=== PATIENT | female | born 1980 | race Caucasian/White ===

== ENCOUNTER 2021-07-09 13:37 | Emergency (ER) | payer MEDICAID, SELFPAY ==
[2021-07-09 14:07] VITALS: BP 138/82; PULSE 98
--- NOTE | 2021-07-09 14:09 | PC.NURSE ---
client brought to pod by [facility]. allegedly discharged from [facility] today, went home to [address], apparently missed methadone dose and boyfriend manages medications, from ems report methadone, vyvanse and ativan patient arrived with pill bottles in [place], one bottle unlabeled orange round tablets (about 40-50 in number). patient appeared unsteady, glazed eyes unfocused slurring speech, patient appeared under the influence of drugs and or etoh although no odor emanating from patient notfied charge and provider to come assess patient.
[2021-07-09 14:16] VITALS: BP 99/60; PULSE 91; RESP 16; TEMP 36.6; O2SAT 96
[2021-07-09 14:19] VITALS: BP 95/50; PULSE 96; RESP 16; TEMP 36.8; O2SAT 95
[2021-07-09 14:20] VITALS: BP 99/60; PULSE 93; RESP 17; TEMP 36.4; O2SAT 97; BMI 38.2
--- NOTE | 2021-07-09 14:24 | ED_ITS ---
HPI - Psych General Chief Complaint: Altered Mental Status <ARTURO Brock Last Filed: 07/09/21 17:51> Stated Complaint: Crisis <ARTURO Brock Last Filed: 07/09/21 17:51> Time Seen by Provider: 07/09/21 14:24 <ARTURO Brock Last Filed: 07/09/21 17:51> Source: old records reviewed <ARTURO Brock Last Filed: 07/09/21 17:51> Mode of arrival: EMS <ARTURO Brock Last Filed: 07/09/21 17:51> Limitations: altered mental status <ARTURO Brock Last Filed: 07/09/21 17:51> History of Present Illness HPI Narrative: 40-year-old female with a past medical history of alcohol abuse, polysubstance abuse, on methadone, Ativan, prozac, and benadryl, and possibly Suboxone and Vyvanse presents altered from her [facility]. Patient cannot tell us why she is here. She is able to follow commands but she becomes lethargic. She is protecting her airway. She cannot provide a review of systems. patient does state that she took 4 of her Ativan and her Prozac today. From [facility] records, pt's home meds include 40 mg fluoxetine, 300 mg gabapentin t.i.d., 1 mg lorazepam 2 times a day p.r.n., 55 mg methadone daily, 25 mg Benadryl q.6 hours PRN. Patient has Suboxone, and Vyvanse, and promethazine listed in her med list, but note from June 12, 2021 from Andre Theodore states patient is not taking these medications <ARTURO Brock - Last Filed: 07/09/21 17:51> MD complaint: altered mental status <ARTURO Brock Last Filed: 07/09/21 17:51> Onset (ago): unknown <ARTURO Brock Last Filed: 07/09/21 17:51> Related Data Allergies/Adverse Reactions: Allergies Allergy/AdvReac Type Severity Reaction Status Date / Time bee pollen [BEE Allergy Severe ANAPHYLAXIS Unverified 02/26/20 18:06 STINGS] phenobarbital Allergy Severe Anaphylaxis Verified 07/09/21 14:39 SEAFOOD Allergy Severe ANAPHYLAXIS Uncoded 02/26/20 18:06 <ARTURO Brock - Last Filed: 07/09/21 17:51> Review of Systems Verdana 4l Review of Systems: Yes Unobtainable due to mental status Verdana 4d Verdana 4Il <ARTURO Brock - Last Filed: 07/09/21 17:51> Verdana 4d Verdana 4l Neurologic: Verdana 4d Reports Abnormal speech present and Reports confusion Verdana 4Il <ARTURO Brock - Last Filed: 07/09/21 17:51> Verdana 4d Verdana 4l Psychiatric: Verdana 4d Verdana 4d Psychiatric: Verdana 4d Reports confusion, Denies homicidal ideation and Denies suicidal ideation Verdana 4Il <ARTURO Brock - Last Filed: 07/09/21 17:51> Verdana 4d [facility] Past Medical History [facility] Narrative: Alcohol abuse, depression, seizure disorder, polysubstance abuse <ARTURO Brock - Last Filed: 07/09/21 17:51> Medical History: Medical History ADHD <ARTURO Brock - Last Filed: 07/09/21 17:51> Social History Social History: Social History Alcohol intake: current Patient Tobacco Use Status: Current everyday Tobacco user Smoked in Last 30 Days: Yes Use of substances other than those prescribed or required for medical reasons: Yes Advance Directives: No Advance Directives Information Provided: Yes Patient : No <ARTURO Brock - Last Filed: 07/09/21 17:51> Physical Exam Verdana 4l Vital Signs: Verdana 4d Verdana 4d Vital Signs: Verdana 4d Verdana 4Bd Last Vital Signs Verdana 4d News Library Director New 4d News Library Director New 4d Temp 97.9 F 07/09/21 20:00 News Library Director New 4d Pulse 74 07/09/21 20:00 News Library Director New 4d Resp 14 07/09/21 20:00 BP 101/51 L 07/09/21 20:00 Pulse Ox 98 07/09/21 20:00 BMI result Body Mass Index 38.2 <ARTURO Brock - Last Filed: 07/09/21 17:51> Vital Signs: Last Vital Signs Temp 97.9 F 07/09/21 20:00 Pulse 74 07/09/21 20:00 Resp 14 07/09/21 20:00 BP 101/51 L 07/09/21 20:00 Pulse Ox 98 07/09/21 20:00 BMI result Body Mass Index 38.2 <Maxx Reaves MD - Last Filed: 07/10/21 00:30> Const: General: alert, awake, combative, confusion, intoxicated appearing and lethargic; No diaphoretic <ARTURO Brock - Last Filed: 07/09/21 17:51> Nutritional Appearance: obese centrally obese <ARTURO Brock - Last Filed: 07/09/21 17:51> Orientation/consciousness: oriented to person, confusion and lethargic <ARTURO Brock - Last Filed: 07/09/21 17:51> Limitations: altered mental status <ARTURO Brock - Last Filed: 07/09/21 17:51> HENMT: Head: Yes normal to inspection, Yes normocephalic and Yes atraumatic <ARTURO Brock - Last Filed: 07/09/21 17:51> Ears: hearing grossly normal bilaterally and external ears normal <ARTURO Brock - Last Filed: 07/09/21 17:51> General nose exam: Normal external nose present <ARTURO Brock - Last Filed: 07/09/21 17:51> Face and sinus: Yes normal facial exam <ARTURO Brock - Last Filed: 07/09/21 17:51> Mouth: Normal oral and palatal mucosa present <ARTURO Brock - Last Filed: 07/09/21 17:51> Eyes: Conjunctivae: conjunctivae normal <ARTURO Brock - Last Filed: 07/09/21 17:51> Pupils: Pinpoint pupils (reactive) bilaterally <ARTURO Brock - Last Filed: 07/09/21 17:51> EOM: Nystagmus present <ARTURO Brock - Last Filed: 07/09/21 17:51> Neck: Neck: Yes full ROM, Yes no lymphadenopathy and Yes supple <Pamela Gonzales [facility] Last Filed: 07/09/21 17:51> Resp: Effort & Inspection: normal respiratory effort and able to speak in complete sentences <Pamela Gonzales [facility] Last Filed: 07/09/21 17:51> Auscultation: clear to auscultation bilaterally, no crackles, no rales, no rhonchi and no wheezes <Pamela Gonzales [facility] Last Filed: 07/09/21 17:51> Cardio: Rate: regular rate <Pamela Gonzales [facility] Last Filed: 07/09/21 17:51> Rhythm: regular rhythm <Pamela Gonzales [facility] Last Filed: 07/09/21 17:51> Heart sounds: S1 normal heart sound present and S2 normal heart sound present <Pamela Gonzales [facility] Last Filed: 07/09/21 17:51> GI: Inspection: Yes normal to inspection <Pamela Gonzales [facility] Last Filed: 07/09/21 17:51> Palpation (GI): Soft to palpation, nontender, no guarding and not rigid <Pamela Gonzales [facility] Last Filed: 07/09/21 17:51> Percussion: Yes normal to percussion <Pamela Gonzales [facility] Last Filed: 07/09/21 17:51> Auscultation: normal bowel sounds <Pamela Gonzales [facility] Last Filed: 07/09/21 17:51> Skin: General skin exam: no rashes or lesions noted <Pamela Gonzales [facility] Last Filed: 07/09/21 17:51> Neuro: Other: Moving all extremities, is able to get out of bed and stand on her own, patient has nystagmus is slurred speech, is unable to perform cerebellar [id number] <Pamela Gonzales [facility] Last Filed: 07/09/21 17:51> General: oriented to person, tone normal, moves all extremities, deep tendon reflexes 2+ bilaterally, confusion and Unable to assess gait <Pamela Gonzales [facility] Last Filed: 07/09/21 17:51> Cranial nerves: Yes Normal facial strength present, Yes Midline tongue present and Yes Nystagmus present <Pamela Gonzales [facility] - Last Filed: 07/09/21 17:51> Cognition (Neuro): abnormal cognition <ARTURO Brock - Last Filed: 07/09/21 17:51> Speech: Abnormal speech present slurred <ARTURO Brock - Last Filed: 07/09/21 17:51> Gait exam (Neuro): Unable to assess gait <ARTURO Brock - Last Filed: 07/09/21 17:51> Pupils: Normal pupillary reactivity/response: bilateral <ARTURO Brock - Last Filed: 07/09/21 17:51> Extrem: General: Yes normal to inspection and Yes full ROM <Pamela Gonzales [facility] - Last Filed: 07/09/21 17:51> Psych: Appearance: disheveled <ARTURO Brock - Last Filed: 07/09/21 17:51> Mental Status: other <ARTURO Brock Last Filed: 07/09/21 17:51> Speech and movement: Slurred speech present <ARTURO Brock - Last Filed: 07/09/21 17:51> Affect: Anxious affect present and Hostile affect present <Pamela Gonzales [facility] Last Filed: 07/09/21 17:51> Attitude: Belligerent attititude/behavior present <ARTURO Brock - Last Filed: 07/09/21 17:51> Thought content: suicidality and no homicidality <ARTURO Brock Last Filed: 07/09/21 17:51> Judgement: Poor judgement present (Psych) <ARTURO Brock Last Filed: 07/09/21 17:51> Course Course Course Narrative: 60-year-old altered female with an unclear story of why she is here. Patient says she was at [facility] ER today, says she [facility] back to her [facility], and they sent her here for medical clearance Says she took 4 Ativan and her daily Prozac. Unclear why she took an increased dose of Ativan, denies SI I tried to call patient's listed phone number [facility]. I called [facility] emergency room they gave me an address and phone number in [place]. Called that phone number, went to [employer]. However after Googling the address patient apparently lives at [facility] in [place]. Per the website, this home supports homeless women. Got note from Andre Theodore from earlier today. At 1:00 a.m. this morning, patient arrived via EMS for a crisis evaluation. Patient was stating she had had a rough day. Staff at her [facility] was concerned patient may have taken too much of her medication. Patient was lethargic but woke to tactile stimuli. Patient denied knowing the circumstances that brought her in and denied drug or alcohol use. She denied SI and HI there. After 6 hours, patient woke up. She did not want to talk to crisis. Note from [facility] states this was a possible intentional drug overdose. Patient was discharged. On exam, pt is able to awake and answer questions and follow commands, but she has slurred speech, nystagmus, and pinpoint pupils that are reactive to light. Pt is able to walk, and gets off the stretcher, demanding food, and saying she wants to leave AMA. Dr Hendricks spoke to patient, told her she is not safe to go home, and must stay, pt complied. She denies self harm, SI or HI. In a moment of lucidity states that methadone is held in a lock box, but is unclear who holds the meds at the [facility]. Will get all the psych labs, EKG, blood glucose, COVID test, drug screen, ethanol, salicylate, Tylenol, magnesium, phosphorus. Will call poison Control, placed pt on capnography <ARTURO Brock - Last Filed: 07/09/21 17:51> Reevaluation(s) Reevaluation #1: Spoke to poison Control, counseled that methadone can prolong the QTC, and QTC from EKG done at 3:00 p.m. shows QTC of 499 which is prolonged, with pinpoint pupils and a soft blood pressure, this could indicate methadone overdose. Poison Control counseled to keep potassium greater than 4 magnesium greater than 2, keep on cardiac care nurse, do serial EKGs every 2-4 hours. Patient is belligerent when she is more lucid and alert. Patient is able to follow commands, and on my re-evaluation pupils are now normal size, and PERRLA. Discussed with Dr. Hendricks, who counseled not using Narcan, as that could precipitate withdrawal <ARTURO Brock - Last Filed: 07/09/21 17:51> Reevaluation #2: Initial EKG at 3:00 p.m. shows QRS at 90, QTC 499. Repeat EKG 2 hours later at 5:00 p.m. shows QRS at 94 and QTC at 490. The QRS is not widening and the QTC is not increasing CBC remarkable for mild anemia, chemistry shows normal magnesium at 2.3 and normal potassium 4.1. Patient has mildly elevated liver function tests, AST 59, ALT 34. Negative for alcohol, salicylates, Tylenol, and COVID. Awaiting urine On re-exam, patient's vitals are more stable, blood pressure 107/71, satting 99% on room air with no oxygen, capnography is 38. PERRLA, patent airway Patient was arousable and requested to be able to continue to sleep. Ssgned pt out to Dr Reaves, awaiting crisis eval once patient is less somulent <ARTURO Brock Last Filed: 07/09/21 17:51> Reevaluation #3: 0023: Physician observation started at 0023. I assumed care of this patient from my colleague, Jolene Gonzales. The patient was sent here from her [facility] for psychiatric evaluation for possible placement in a respite type setting. There was a concerned that the patient was taking more medications than prescribed. Initially the patient was very lethargic and there was a concern that she may have taken extra Ativan or extra methadone. The plan was to observe her in the emergency department until she was awake enough to give us a better history. The patient was able to talk to me. She told me that she has a history of alcohol and heroin abuse. She states that she has been sober since January 09, 2021. She states she is currently taking methadone daily but has not received her methadone in 2 days. She states that she is living in a sober house and she has been very emotional. She states that her aunt is sick and she feels overwhelmed. She states that 1 of the other women at the [facility] was bullied and the patient spent all night talking to this woman and did not get any sleep. She states that she took her usual medications today and did not taking extra Ativan and she did not take any extra methadone. She states that she was like to talk to our [facility] counselors to see if she can get in to a respite type program. At this time, I believe that the patient is medically cleared for evaluation. We will obtain a urine for drug screen. patient is awake, she is able answer questions, lung exam was clear, heart regular rate rhythm, neurologic exam is nonfocal. <Maxx Reaves MD - Last Filed: 07/10/21 00:30> Time: 00:22 <Maxx Reaves MD - Last Filed: 07/10/21 00:30> MDM - Psych Medical Records Attestation: I reviewed the patient's medical records. <ARTURO Brock - Last Filed: 07/09/21 17:51> Lab Data Attestation: I reviewed the patient's lab results. <ARTURO Brock - Last Filed: 07/09/21 17:51> Result diagrams: : 07/09/21 15:51 07/09/21 15:51 <ARTURO Brock - Last Filed: 07/09/21 17:51> Labs: Lab Results 07/09/21 07/09/21 07/09/21 Range/Units 15:51 15:51 15:51 WBC 5.1 (4.8-10.8) X10*3/uL RBC 3.91 L (4.20-5.50) X10*6/uL Hgb 11.9 L (12.0-16.0) g/dl Hct 34.9 L (37.0-47.0) % MCV 89.3 (80.0-98.0) fL MCH 30.4 (27.0-33.0) pg MCHC 34.1 (31.0-35.0) g/dl RDW 12.7 (11.0-16.0) % Plt Count 134 L (160-400) X10*3/uL MPV 10.7 (9.4-12.3) fL Immature Gran % (Auto) 0.2 (0.0-0.4) % Neut % (Auto) 49.7 (45-73) % Lymph % (Auto) 37.2 (20-40) % Fajardo % (Auto) 8.6 (2-11) % Eos % (Auto) 4.1 H (0-4) % Baso % (Auto) 0.2 (0-2) % Lymph # (Auto) 1.9 (1.2-4.9) X10*3/uL Fajardo # (Auto) 0.4 (0.1-1.2) X10*3/uL Eos # (Auto) 0.2 (0.0-0.4) X10*3/uL Baso # (Auto) 0.0 (0.0-0.2) X10*3/uL Abs Immat Gran (auto) 0.01 (0.00-0.03) X10*3/uL Absolute Neuts (auto) 2.6 (2.0-8.3) x10*3/uL Absolute Nucleated RBC 0.000 (0.0-0.012) X10*3/uL Nucleated RBC % (auto) 0.0 (0.0-0.2) /100WBC Sodium 139 (135-145) mmol/L Potassium 4.1 (3.3-5.1) mmol/L Chloride 108 (96-108) mmol/L Carbon Dioxide 23 (22-29) mmol/L Anion Gap 12 (12-20) BUN 13 (9-16) mg/dL Creatinine 0.75 (0.5-1.4) mg/dL Estim Creat Clear Calc 142.2 Estimated GFR > 60 Random Glucose 100 (60-115) mg/dL Calcium 8.9 (8.4-10.2) mg/dL Phosphorus 3.8 (2.7-4.5) mg/dL Magnesium 2.3 (1.6-2.6) mg/dL Total Bilirubin 0.3 (0.0-1.0) mg/dL AST 59 H (5-31) U/L ALT 34 H (0-31) U/L Alkaline Phosphatase 69 (39-117) U/L Total Protein 6.9 (6.5-8.0) g/dL Albumin 3.7 (3.5-5.0) g/dL Salicylates < 5.0 L (15-30) mg/dL Acetaminophen < 1 (<30) mcg/mL Ethyl Alcohol < 10 mg/dL COVID-19 (JORGE LUIS) (Negative) COVID-19 Clin Com 07/09/21 Range/Units 15:54 WBC (4.8-10.8) X10*3/uL RBC (4.20-5.50) X10*6/uL Hgb (12.0-16.0) g/dl Hct (37.0-47.0) % MCV (80.0-98.0) fL MCH (27.0-33.0) pg MCHC (31.0-35.0) g/dl RDW (11.0-16.0) % Plt Count (160-400) X10*3/uL MPV (9.4-12.3) fL Immature Gran % (Auto) (0.0-0.4) % Neut % (Auto) (45-73) % Lymph % (Auto) (20-40) % Fajardo % (Auto) (2-11) % Eos % (Auto) (0-4) % Baso % (Auto) (0-2) % Lymph # (Auto) (1.2-4.9) X10*3/uL Fajardo # (Auto) (0.1-1.2) X10*3/uL Eos # (Auto) (0.0-0.4) X10*3/uL Baso # (Auto) (0.0-0.2) X10*3/uL Abs Immat Gran (auto) (0.00-0.03) X10*3/uL Absolute Neuts (auto) (2.0-8.3) x10*3/uL Absolute Nucleated RBC (0.0-0.012) X10*3/uL Nucleated RBC % (auto) (0.0-0.2) /100WBC Sodium (135-145) mmol/L Potassium (3.3-5.1) mmol/L Chloride (96-108) mmol/L Carbon Dioxide (22-29) mmol/L Anion Gap (12-20) BUN (9-16) mg/dL Creatinine (0.5-1.4) mg/dL Estim Creat Clear Calc Estimated GFR Random Glucose (60-115) mg/dL Calcium (8.4-10.2) mg/dL Phosphorus (2.7-4.5) mg/dL Magnesium (1.6-2.6) mg/dL Total Bilirubin (0.0-1.0) mg/dL AST (5-31) U/L ALT (0-31) U/L Alkaline Phosphatase (39-117) U/L Total Protein (6.5-8.0) g/dL Albumin (3.5-5.0) g/dL Salicylates (15-30) mg/dL Acetaminophen (<30) mcg/mL Ethyl Alcohol mg/dL COVID-19 ([facility]) Negative (Negative) COVID-19 Clin Com See Note <ARTURO Brock - Last Filed: 07/09/21 17:51> Lab Results 07/09/21 07/09/21 07/09/21 Range/Units 15:51 15:51 15:51 WBC 5.1 (4.8-10.8) X10*3/uL RBC 3.91 L (4.20-5.50) X10*6/uL Hgb 11.9 L (12.0-16.0) g/dl Hct 34.9 L (37.0-47.0) % MCV 89.3 (80.0-98.0) fL MCH 30.4 (27.0-33.0) pg MCHC 34.1 (31.0-35.0) g/dl RDW 12.7 (11.0-16.0) % Plt Count 134 L (160-400) X10*3/uL MPV 10.7 (9.4-12.3) fL Immature Gran % (Auto) 0.2 (0.0-0.4) % Neut % (Auto) 49.7 (45-73) % Lymph % (Auto) 37.2 (20-40) % Fajardo % (Auto) 8.6 (2-11) % Eos % (Auto) 4.1 H (0-4) % Baso % (Auto) 0.2 (0-2) % Lymph # (Auto) 1.9 (1.2-4.9) X10*3/uL Fajardo # (Auto) 0.4 (0.1-1.2) X10*3/uL Eos # (Auto) 0.2 (0.0-0.4) X10*3/uL Baso # (Auto) 0.0 (0.0-0.2) X10*3/uL Abs Immat Gran (auto) 0.01 (0.00-0.03) X10*3/uL Absolute Neuts (auto) 2.6 (2.0-8.3) x10*3/uL Absolute Nucleated RBC 0.000 (0.0-0.012) X10*3/uL Nucleated RBC % (auto) 0.0 (0.0-0.2) /100WBC Sodium 139 (135-145) mmol/L Potassium 4.1 (3.3-5.1) mmol/L Chloride 108 (96-108) mmol/L Carbon Dioxide 23 (22-29) mmol/L Anion Gap 12 (12-20) BUN 13 (9-16) mg/dL Creatinine 0.75 (0.5-1.4) mg/dL Estim Creat Clear Calc 142.2 Estimated GFR > 60 Random Glucose 100 (60-115) mg/dL Calcium 8.9 (8.4-10.2) mg/dL Phosphorus 3.8 (2.7-4.5) mg/dL Magnesium 2.3 (1.6-2.6) mg/dL Total Bilirubin 0.3 (0.0-1.0) mg/dL AST 59 H (5-31) U/L ALT 34 H (0-31) U/L Alkaline Phosphatase 69 (39-117) U/L Total Protein 6.9 (6.5-8.0) g/dL Albumin 3.7 (3.5-5.0) g/dL Salicylates < 5.0 L (15-30) mg/dL Acetaminophen < 1 (<30) mcg/mL Ethyl Alcohol < 10 mg/dL COVID-19 ([facility]) (Negative) COVID-19 Clin Com 07/09/21 Range/Units 15:54 WBC (4.8-10.8) X10*3/uL RBC (4.20-5.50) X10*6/uL Hgb (12.0-16.0) g/dl Hct (37.0-47.0) % MCV (80.0-98.0) fL MCH (27.0-33.0) pg MCHC (31.0-35.0) g/dl RDW (11.0-16.0) % Plt Count (160-400) X10*3/uL MPV (9.4-12.3) fL Immature Gran % (Auto) (0.0-0.4) % Neut % (Auto) (45-73) % Lymph % (Auto) (20-40) % Fajardo % (Auto) (2-11) % Eos % (Auto) (0-4) % Baso % (Auto) (0-2) % Lymph # (Auto) (1.2-4.9) X10*3/uL Fajardo # (Auto) (0.1-1.2) X10*3/uL Eos # (Auto) (0.0-0.4) X10*3/uL Baso # (Auto) (0.0-0.2) X10*3/uL Abs Immat Gran (auto) (0.00-0.03) X10*3/uL Absolute Neuts (auto) (2.0-8.3) x10*3/uL Absolute Nucleated RBC (0.0-0.012) X10*3/uL Nucleated RBC % (auto) (0.0-0.2) /100WBC Sodium (135-145) mmol/L Potassium (3.3-5.1) mmol/L Chloride (96-108) mmol/L Carbon Dioxide (22-29) mmol/L Anion Gap (12-20) BUN (9-16) mg/dL Creatinine (0.5-1.4) mg/dL Estim Creat Clear Calc Estimated GFR Random Glucose (60-115) mg/dL Calcium (8.4-10.2) mg/dL Phosphorus (2.7-4.5) mg/dL Magnesium (1.6-2.6) mg/dL Total Bilirubin (0.0-1.0) mg/dL AST (5-31) U/L ALT (0-31) U/L Alkaline Phosphatase (39-117) U/L Total Protein (6.5-8.0) g/dL Albumin (3.5-5.0) g/dL Salicylates (15-30) mg/dL Acetaminophen (<30) mcg/mL Ethyl Alcohol mg/dL COVID-19 ([facility]) Negative (Negative) COVID-19 Clin Com See Note <Maxx Reaves MD - Last Filed: 07/10/21 00:30> ECG Data Interpretation: EKG #1, 3:06 pm: normal sinus with a rate of 76, OR interval 200, QRS 98, prolonged QTC at 499, normal axis, no ST depressions or elevations EKG #2: 5:06 PM: sinus rhythm with possible first-degree AV block with rate of 70, OR 210, QRS 94, QTC 490, no ST elevations or depressions <ARTURO Brock - Last Filed: 07/09/21 17:51> Discharge Plan Discharge Clinical Impression: Altered mental status <ARTURO Brock - Last Filed: 07/09/21 17:51> Patient Disposition: Still a Patient <ARTURO Brock - Last Filed: 07/09/21 17:51>
--- NOTE | 2021-07-09 14:44 | ECG_ITS ---
Test Reason : AMS Blood Pressure : / mmHG Vent. Rate : 076 BPM Atrial Rate : 076 BPM P-R Int : 200 ms QRS Dur : 098 ms QT Int : 444 ms P-R-T Axes : 024 102 022 degrees QTc Int : 499 ms Normal sinus rhythm Rightward axis Low voltage QRS Prolonged QT Abnormal ECG When compared with ECG of 12-MAR-2013 17:48, Vent. rate has decreased BY 51 BPM Questionable change in QRS axis Minimal criteria for Anterior infarct are no longer Present Referred By: Pamela Gonzales Electronically Signed By:YASMEEN MARTINEZ MD
--- NOTE | 2021-07-09 14:55 | PC.NURSE ---
pt alert to self and place, very drowsy and struggling to stay awake while talking. pt reports taking ativan and prosac at home, didn't take methadone this morning. pt was possibly seen at [facility] today. pt confirms not an SI attempt, wanted to calm down . agreeable to plan at this time.
[2021-07-09 15:55] VITALS: BP 107/45; PULSE 72; RESP 16; O2SAT 97
[2021-07-09] MEDS: 0.9 % Sodium Chloride 1,000 ML 999 ML IV (15:55)
[2021-07-09 15:57] LABS: MANUAL DIFF FLAG NO
--- NOTE | 2021-07-09 15:57 | PC.NURSE ---
Jolene MORRIS spoke to posion control. IV established, fluids started and labs obtained. Pt observer with pt at this tie.
[2021-07-09 15:58] LABS: Basophils Percent Auto 0.2 % (0-2); Eosinophils Absolute Auto 0.2 X10*3/uL (0.0-0.4); Eosinophils Percent Auto 4.1 % (0-4); Hematocrit 34.9 % (37.0-47.0); Hemoglobin 11.9 g/dl (12.0-16.0); Imm Gran Abs Auto 0.01 X10*3/uL (0.00-0.03); Imm Gran Pct Auto 0.2 % (0.0-0.4); Lymphocytes Absolute Auto 1.9 X10*3/uL (1.2-4.9); Lymphocytes Percent Auto 37.2 % (20-40); Mean Corpuscular HGB Conc 34.1 g/dl (31.0-35.0); Mean Corpuscular Hemoglobin 30.4 pg (27.0-33.0); Mean Corpuscular Volume 89.3 fL (80.0-98.0); Mean Platelet Volume 10.7 fL (9.4-12.3); Monocytes Absolute Auto 0.4 X10*3/uL (0.1-1.2); Monocytes Percent Auto 8.6 % (2-11); Neutrophils Absolute Auto 2.6 x10*3/uL (2.0-8.3); Neutrophils Percent Auto 49.7 % (45-73); Platelet Count 134 X10*3/uL (160-400); Red Blood Count 3.91 X10*6/uL (4.20-5.50); Red Cell Distribution Width 12.7 % (11.0-16.0); White Blood Count 5.1 X10*3/uL (4.8-10.8)
[2021-07-09 16:07] LABS: Ethanol < 10 mg/dL
[2021-07-09 16:16] LABS: Alanine Aminotransferase 34 U/L (0-31); Albumin Level 3.7 g/dL (3.5-5.0); Alkaline Phosphatase 69 U/L (39-117); Anion Gap 12 (12-20); Aspartate Amino Transferase 59 U/L (5-31); Bilirubin Total 0.3 mg/dL (0.0-1.0); Blood Urea Nitrogen 13 mg/dL (9-16); Calcium 8.9 mg/dL (8.4-10.2); Carbon Dioxide 23 mmol/L (22-29); Chloride 108 mmol/L (96-108); Creatinine Clr Calc Pharmacy 142.2; Estimated Glomerular Filt Rate > 60; Glucose Random 100 mg/dL (60-115); Magnesium 2.3 mg/dL (1.6-2.6); Phosphorus 3.8 mg/dL (2.7-4.5); Potassium 4.1 mmol/L (3.3-5.1); Salicylate < 5.0 mg/dL (15-30); Sodium 139 mmol/L (135-145); Total Protein 6.9 g/dL (6.5-8.0)
[2021-07-09 16:18] LABS: COVID-19 Test Negative (Negative); IDNOW Serial# 9DD0AD1C
[2021-07-09 16:29] LABS: Acetaminophen LAB < 1 mcg/mL (<30)
--- NOTE | 2021-07-09 16:59 | ECG_ITS ---
Test Reason : REPEAT Blood Pressure : / mmHG Vent. Rate : 070 BPM Atrial Rate : 070 BPM P-R Int : 210 ms QRS Dur : 094 ms QT Int : 454 ms P-R-T Axes : 033 100 049 degrees QTc Int : 490 ms Sinus rhythm with 1st degree A-V block Rightward axis Prolonged QT Abnormal ECG When compared with ECG of 09-JUL-2021 15:06, No significant change was found Referred By: Pamela Gonzales Electronically Signed By:YASMEEN MARTINEZ MD
--- NOTE | 2021-07-09 17:44 | PC.NURSE ---
This RN spoke with Amryjane from poison control and updated. Pt continues to sleep at this time, awakes to loud verbal stimuli. sat 100% on room air. Pt observer present
[2021-07-09 20:00] VITALS: BP 101/51; PULSE 74; RESP 14; TEMP 36.6; O2SAT 98
--- NOTE | 2021-07-09 21:42 | PC.NURSE ---
pt requesting methadone, aware. pt unable to stay awake or to finish a sentence without falling asleep. pt aware she is not able to get methadone at this time. will continue to monitor pt.
--- NOTE | 2021-07-09 22:38 | PC.NURSE ---
poison control called again and is closing the case.
--- NOTE | 2021-07-09 22:59 | PC.NURSE ---
pt remains sleepy, wakes to voice and falls back to sleep. in room for re-eval. pt remains on 1:1 obs and in NAD at this time.
[2021-07-10 01:19] LABS: Appearance Urine HAZY; Color Urine YELLOW; Glucose Urine UA NEG (NEG); Leukocyte Esterase Urine NEG (NEG); Nitrite Urine NEG (NEG); Specific Gravity - Urine >= 1.030 (1.005-1.025); Urine Blood NEG (NEG); Urine Ketones NEG (NEG); Urine Protein NEG (NEG-TRACE)
[2021-07-10 01:21] LABS: UPreg QC Valid YES; Urine Pregnancy NEGATIVE (NEGATIVE)
[2021-07-10 01:36] LABS: Amphetamine Screen Urine POSITIVE (Not Detect); Barbiturates, Urine Not Detected (Not Detect); Benzodiazepines Screen Urine POSITIVE (Not Detect); Cannabinoid Screen Urine Not Detected (Not Detect); Cocaine Screen Urine Not Detected (Not Detect); Fentanyl, urine Not Detected (Not Detect); Opiate Screen Urine Not Detected (Not Detect); Phencyclidine Screen Urine Not Detected (Not Detect)
--- NOTE | 2021-07-10 08:58 | PC.NURSE ---
ABBY here to assess pt however clinician reports pt too sleepy to assess, will have follow up later a pt remained tearful with brief interview. Fax to [facility] for Methadone dose
--- NOTE | 2021-07-10 09:42 | PHA.MEDREC ---
med rec complete, no issues, had list from patient [facility]. Pharmacy Consult ? Medication Reconciliation Pharmacy has completed the medication reconciliation.
[2021-07-10 10:22] LABS: MANUAL DIFF FLAG NO
[2021-07-10 10:34] LABS: Basophils Percent Auto 0.3 % (0-2); Eosinophils Absolute Auto 0.2 X10*3/uL (0.0-0.4); Eosinophils Percent Auto 4.3 % (0-4); Hematocrit 36.3 % (37.0-47.0); Hemoglobin 12.1 g/dl (12.0-16.0); Lymphocytes Absolute Auto 1.1 X10*3/uL (1.2-4.9); Lymphocytes Percent Auto 28.4 % (20-40); Mean Corpuscular HGB Conc 33.3 g/dl (31.0-35.0); Mean Corpuscular Hemoglobin 30.4 pg (27.0-33.0); Mean Corpuscular Volume 91.2 fL (80.0-98.0); Mean Platelet Volume 10.8 fL (9.4-12.3); Monocytes Absolute Auto 0.4 X10*3/uL (0.1-1.2); Monocytes Percent Auto 8.9 % (2-11); Neutrophils Absolute Auto 2.3 x10*3/uL (2.0-8.3); Neutrophils Percent Auto 58.1 % (45-73); Platelet Count 131 X10*3/uL (160-400); Red Blood Count 3.98 X10*6/uL (4.20-5.50); Red Cell Distribution Width 12.7 % (11.0-16.0); White Blood Count 3.9 X10*3/uL (4.8-10.8)
[2021-07-10 10:47] LABS: Acetaminophen LAB < 1 mcg/mL (<30); Alanine Aminotransferase 27 U/L (0-31); Albumin Level 3.2 g/dL (3.5-5.0); Alkaline Phosphatase 63 U/L (39-117); Anion Gap 9 (12-20); Aspartate Amino Transferase 30 U/L (5-31); Bilirubin Total 0.4 mg/dL (0.0-1.0); Blood Urea Nitrogen 9 mg/dL (9-16); Calcium 8.4 mg/dL (8.4-10.2); Carbon Dioxide 24 mmol/L (22-29); Chloride 112 mmol/L (96-108); Creatinine Clr Calc Pharmacy 161.6; Estimated Glomerular Filt Rate > 60; Glucose Random 92 mg/dL (60-115); Magnesium 2.1 mg/dL (1.6-2.6); Sodium 141 mmol/L (135-145); Total Protein 5.8 g/dL (6.5-8.0)
[2021-07-10 10:48] LABS: Salicylate < 5.0 mg/dL (15-30)
[2021-07-10 10:49] VITALS: BP 106/50; PULSE 66; RESP 16; O2SAT 97
--- NOTE | 2021-07-10 11:03 | PC.NURSE ---
Pt now alert/awake, responding appropriately. Requesting and given po fluids. Ambulatory to bathroom and repeat [place] obtained. Repeat labs drawn/sent. Continues to deny SI or HI. States interest in respite
[2021-07-10 11:20] LABS: Amphetamine Screen Urine POSITIVE (Not Detect); Barbiturates, Urine Not Detected (Not Detect); Benzodiazepines Screen Urine POSITIVE (Not Detect); Cannabinoid Screen Urine Not Detected (Not Detect); Cocaine Screen Urine Not Detected (Not Detect); Fentanyl, urine Not Detected (Not Detect); Opiate Screen Urine Not Detected (Not Detect); Phencyclidine Screen Urine Not Detected (Not Detect)
[2021-07-10] MEDS: methADONE HCl 20 MG/2 ML ORAL.CONC 60 MG PO (12:26)
[2021-07-10] MEDS: Gabapentin 300 MG CAPSULE PO ×2 (16:56→21:20)
[2021-07-10] MEDS: LORazepam 1 MG TABLET PO ×2 (17:05→21:19)
--- NOTE | 2021-07-10 18:41 | PC.NURSE ---
RAQUELN called to inquire about next clinician available to assess, [facility] states assessment will likely be tomorrow.
[2021-07-10 19:36] VITALS: BP 107/53; PULSE 67; RESP 15; O2SAT 96
[2021-07-11 00:22] VITALS: BP 100/50; PULSE 72; RESP 12; TEMP 36.8; O2SAT 98
[2021-07-11 02:29] VITALS: BP 92/55; PULSE 63; RESP 12; TEMP 36.8; O2SAT 96
[2021-07-11 04:37] VITALS: BP 95/36; PULSE 67; RESP 16; TEMP 36.7; O2SAT 97
[2021-07-11 06:15] VITALS: RESP 14
[2021-07-11] MEDS: FLUoxetine HCl 20 MG CAPSULE 40 MG PO (07:30)
[2021-07-11] MEDS: Gabapentin 300 MG CAPSULE PO (07:30)
[2021-07-11] MEDS: methADONE HCl 20 MG/2 ML ORAL.CONC 60 MG PO (07:30)
[2021-07-11] MEDS: LORazepam 1 MG TABLET PO (08:55)
[2021-07-11] MEDS: LORazepam 1 MG TABLET 2 MG PO (11:51)
[2021-07-11 12:47] VITALS: BP 123/70; PULSE 65; RESP 16; O2SAT 98
== END 2021-07-11 16:09 | disposition home or self-care (01) ==
PROVIDERS: Physician Assistant; Physician Assistant Medical; Emergency Provider Emergency Medicine Emergency Medical Services
DX: R41.82 Altered mental status, unspecified (principal); R53.83 Other fatigue; Z20.822 Contact with and (suspected) exposure to COVID-19; F11.20 Opioid dependence, uncomplicated; F10.10 Alcohol abuse, uncomplicated; Y90.0 Blood alcohol level of less than 20 mg/100 ml; F17.200 Nicotine dependence, unspecified, uncomplicated; F41.9 Anxiety disorder, unspecified; Z79.899 Other long term (current) drug therapy
CPT/HCPCS: 36415; 80053; 80143; 80179; 80307; 81003; 81025; 82077; 83735; 84100; 85025; 87635; 93005; 96360; 99285